=== PATIENT | male | born 1935 | race Caucasian/White ===

== ENCOUNTER 2019-09-29 12:15 | Inpatient (IN) ==
[2019-09-29 13:19] LABS: Basophils # 0.1 K/mcL (0.0-0.2); Basophils % 0.5 %; Eosinophils % 0.2 %; Hematocrit 37.3 % (37.5-50.1); Hemoglobin 12.3 g/dL (12.9-16.9); Immature Granulocytes % 0.8 % (0-4); Lymphocytes % 7.8 %; Mean Corpuscular Hemoglobin 28.3 pg (28.0-33.3); Mean Corpuscular Volume 85.9 fL (83.0-100.0); Mean Platelet Volume 9.4 fL (9.4-12.4); Monocytes # 1.7 K/mcL (0.0-1.3); Monocytes % 13.8 %; Neutrophils # 9.6 K/mcL (1.6-8.9); Platelet Count 301 K/mcL (140-400); Red Blood Count 4.34 M/mcL (4.19-5.50); Red Cell Distribution Width 14.6 % (11.5-14.5); Segmented Neutrophils % 76.9 %; White Blood Count 12.5 K/mcL (4.3-11.1)
[2019-09-29 13:25] LABS: INR 1.2; Prothrombin Time 13.2 Seconds (9.4-12.1)
[2019-09-29 13:28] LABS: Activated Partial Thrombo Time 33.2 Seconds (26.0-36.0)
[2019-09-29 13:39] LABS: Bilirubin,Urine Negative (Negative); Blood,Urine Negative (Negative); Clarity,Urine Clear (Clear); Color,Urine Yellow (Yellow); Glucose,Urine (UA) Normal (Normal); Ketones,Urine Negative (Negative); Leukocyte Esterase,Urine Negative (Negative); Nitrite,Urine Negative (Negative); PH,Urine 6.5 pH Units (5.0-8.0); Protein,Urine Negative (Neg-Trace); Specific Gravity,Urine 1.021 (1.010-1.025)
[2019-09-29 13:42] LABS: Alanine Aminotransferase 16 Units/L (7-52); Albumin 3.3 g/dL (3.5-5.7); Albumin/Globulin Ratio 1.5 (1.1-2.2); Alkaline Phosphatase 73 Units/L (34-104); Aspartate Amino Transferase 20 Units/L (13-39); BUN/Creatinine Ratio 37 (6-26); Bilirubin,Direct 0.3 mg/dL (0.0-0.2); Bilirubin,Indirect 0.9 mg/dL (0.0-1.0); Bilirubin,Total 1.2 mg/dL (0.3-1.0); Blood Urea Nitrogen 24 mg/dL (8-23); Calcium 9.6 mg/dL (8.6-10.3); Carbon Dioxide 26 mEq/L (23-29); Chloride 105 mEq/L (98-107); Creatine Kinase 133 Units/L (30-223); Globulin 2.2 g/dL (2.4-3.5); Glucose 106 mg/dL (70-105); Osmolality,Calculated 288 (280-300); Sodium 137 mEq/L (136-145); Total Protein 5.5 g/dL (6.4-8.9); Troponin I < 0.03 ng/mL (< 0.04); eGFR For African Americans > 60 (> 60); eGFR For Non-African Americans > 60 (> 60)
[2019-09-29 13:49] LABS: Amphetamine Screen,Urine Negative ng/mL (Cutoff=1000); Barbiturate Screen,Urine Negative ng/mL (Cutoff=200); Benzodiazepines Screen,Urine Negative ng/mL (Cutoff=200); Cannabinoid Screen,Urine Negative ng/mL (Cutoff = 50); Cocaine Screen,Urine Negative ng/mL (Cutoff= 300); Opiate Screen,Urine Negative ng/mL (Cutoff=300); Phencyclidine Screen,Urine Negative ng/mL (Cutoff=25)
[2019-09-29] MEDS ORDERED: Naloxone 0.4 MG/ML INJ IVP PRN (16:07)
[2019-09-29] MEDS ORDERED: 0.9 % Sodium Chloride 1,000 ML IVC SCH (16:15)
[2019-09-29] MEDS: CLEAR EYES NATURAL TEARS 15 ML BOTTLE LEFT EYE SCH ×2 (18:32→20:36)
[2019-09-30 04:21] LABS: Basophils # 0.1 K/mcL (0.0-0.2); Basophils % 0.7 %; Eosinophils # 0.1 K/mcL (0.0-0.6); Eosinophils % 1.3 %; Hematocrit 35.7 % (37.5-50.1); Hemoglobin 11.6 g/dL (12.9-16.9); Lymphocytes # 1.9 K/mcL (0.6-4.6); Lymphocytes % 17.2 %; Mean Corpuscular HGB Conc 32.5 g/dL (31.6-35.5); Mean Corpuscular Hemoglobin 27.8 pg (28.0-33.3); Mean Corpuscular Volume 85.6 fL (83.0-100.0); Monocytes # 1.8 K/mcL (0.0-1.3); Monocytes % 15.8 %; Neutrophils # 7.1 K/mcL (1.6-8.9); Platelet Count 304 K/mcL (140-400); Red Blood Count 4.17 M/mcL (4.19-5.50); Red Cell Distribution Width 14.6 % (11.5-14.5); White Blood Count 11.1 K/mcL (4.3-11.1)
[2019-09-30 04:45] LABS: Alanine Aminotransferase 13 Units/L (7-52); Albumin/Globulin Ratio 1.4 (1.1-2.2); Alkaline Phosphatase 70 Units/L (34-104); Aspartate Amino Transferase 15 Units/L (13-39); BUN/Creatinine Ratio 37 (6-26); Bilirubin,Direct 0.3 mg/dL (0.0-0.2); Bilirubin,Indirect 0.9 mg/dL (0.0-1.0); Bilirubin,Total 1.2 mg/dL (0.3-1.0); Blood Urea Nitrogen 23 mg/dL (8-23); Calcium 9.3 mg/dL (8.6-10.3); Carbon Dioxide 28 mEq/L (23-29); Chloride 106 mEq/L (98-107); Globulin 2.2 g/dL (2.4-3.5); Glucose 104 mg/dL (70-105); Osmolality,Calculated 296 (280-300); Potassium 3.8 mEq/L (3.5-5.1); Sodium 141 mEq/L (136-145); Total Protein 5.2 g/dL (6.4-8.9); eGFR For African Americans > 60 (> 60); eGFR For Non-African Americans > 60 (> 60)
[2019-09-30] MEDS: Finasteride 5 MG TABLET PO SCH (09:45)
[2019-09-30] MEDS: (Mirabegron [Myrbetriq] 50 MG) PO SCH (09:49)
[2019-09-30] MEDS: CLEAR EYES NATURAL TEARS 15 ML BOTTLE LEFT EYE SCH ×4 (10:09→21:16)
[2019-10-01 02:45] LABS: Hematocrit 35.2 % (37.5-50.1); Hemoglobin 11.2 g/dL (12.9-16.9); Mean Corpuscular HGB Conc 31.8 g/dL (31.6-35.5); Mean Corpuscular Hemoglobin 28.1 pg (28.0-33.3); Mean Corpuscular Volume 88.4 fL (83.0-100.0); Platelet Count 304 K/mcL (140-400); Red Blood Count 3.98 M/mcL (4.19-5.50); Red Cell Distribution Width 14.6 % (11.5-14.5); White Blood Count 11.3 K/mcL (4.3-11.1)
[2019-10-01] MEDS: Finasteride 5 MG TABLET PO SCH (09:36)
[2019-10-01] MEDS: (Mirabegron [Myrbetriq] 50 MG) PO SCH (09:37)
[2019-10-01] MEDS: CLEAR EYES NATURAL TEARS 15 ML BOTTLE LEFT EYE SCH ×4 (09:37→22:35)
[2019-10-02 06:07] LABS: Hematocrit 36.6 % (37.5-50.1); Hemoglobin 11.7 g/dL (12.9-16.9); Mean Corpuscular Hemoglobin 27.9 pg (28.0-33.3); Mean Corpuscular Volume 87.4 fL (83.0-100.0); Mean Platelet Volume 9.3 fL (9.4-12.4); Platelet Count 337 K/mcL (140-400); Red Blood Count 4.19 M/mcL (4.19-5.50); Red Cell Distribution Width 14.9 % (11.5-14.5); White Blood Count 11.5 K/mcL (4.3-11.1)
[2019-10-02] MEDS: Finasteride 5 MG TABLET PO SCH (08:11)
[2019-10-02] MEDS: (Mirabegron [Myrbetriq] 50 MG) PO SCH (08:15)
[2019-10-02] MEDS: CLEAR EYES NATURAL TEARS 15 ML BOTTLE LEFT EYE SCH ×4 (08:18→21:50)
[2019-10-02] MEDS: *HR* Heparin 5,000 UNIT/ML VIAL SQ SCH (16:57)
[2019-10-02] MEDS ORDERED: Acetaminophen 325 MG TABLET PO PRN (17:03)
[2019-10-03 04:52] LABS: Hematocrit 34.9 % (37.5-50.1); Hemoglobin 11.3 g/dL (12.9-16.9); Mean Corpuscular HGB Conc 32.4 g/dL (31.6-35.5); Mean Corpuscular Hemoglobin 28.3 pg (28.0-33.3); Mean Corpuscular Volume 87.3 fL (83.0-100.0); Mean Platelet Volume 9.5 fL (9.4-12.4); Platelet Count 321 K/mcL (140-400); Red Cell Distribution Width 14.7 % (11.5-14.5); White Blood Count 10.2 K/mcL (4.3-11.1)
[2019-10-03] MEDS: *HR* Heparin 5,000 UNIT/ML VIAL SQ SCH (05:15)
[2019-10-03 05:17] LABS: BUN/Creatinine Ratio 43 (6-26); Blood Urea Nitrogen 25 mg/dL (8-23); Calcium 9.2 mg/dL (8.6-10.3); Carbon Dioxide 24 mEq/L (23-29); Chloride 106 mEq/L (98-107); Glucose 96 mg/dL (70-105); Osmolality,Calculated 288 (280-300); Sodium 137 mEq/L (136-145); eGFR For African Americans > 60 (> 60); eGFR For Non-African Americans > 60 (> 60)
[2019-10-03 07:03] VITALS: BP 160/89
[2019-10-03] MEDS: CLEAR EYES NATURAL TEARS 15 ML BOTTLE LEFT EYE SCH (09:11)
[2019-10-03] MEDS: Finasteride 5 MG TABLET PO SCH (09:11)
[2019-10-03] MEDS: (Mirabegron [Myrbetriq] 50 MG) PO SCH (09:12)
== END 2019-10-03 12:17 | DRG 92 ==
LOC: 3BNU 12:15 → EMEROOARM 12:15 → 3BNU 15:14
PROVIDERS: ADMIT Pharmacist; ATTEND Pharmacist

== ENCOUNTER 2022-04-10 19:27 | Inpatient (IN) ==
[2022-04-10 20:38] LABS: Basophils # 0.1 K/mcL (0.0-0.2); Basophils % 0.4 %; Hematocrit 47.2 % (37.5-50.1); Hemoglobin 14.8 g/dL (12.9-16.9); Immature Granulocytes % 1.2 % (0-4); Lymphocytes # 0.4 K/mcL (0.6-4.6); Lymphocytes % 1.7 %; Mean Corpuscular HGB Conc 31.4 g/dL (31.6-35.5); Mean Corpuscular Hemoglobin 26.7 pg (28.0-33.3); Mean Corpuscular Volume 85.2 fL (83.0-100.0); Mean Platelet Volume 10.2 fL (9.4-12.4); Monocytes # 1.4 K/mcL (0.0-1.3); Monocytes % 6.8 %; Neutrophils # 18.7 K/mcL (1.6-8.9); Platelet Count 250 K/mcL (140-400); Red Blood Count 5.54 M/mcL (4.19-5.50); Red Cell Distribution Width 14.7 % (11.5-14.5); Segmented Neutrophils % 89.9 %; White Blood Count 20.8 K/mcL (4.3-11.1)
[2022-04-10 20:55] LABS: Potassium 3.8 mEq/L (3.5-5.1)
[2022-04-10 20:59] LABS: Troponin I 0.1 ng/mL (< 0.04)
[2022-04-10] MEDS ORDERED: Piperacillin/Tazobactam 3.375 GM in 0.9 % Sodium Chloride Mini Bag 100 ML IVPB ONE (21:06)
[2022-04-10] MEDS ORDERED: 0.9 % Sodium Chloride 500 ML IVC ONE (21:07)
[2022-04-10] MEDS: 0.9 % Sodium Chloride 1,000 ML IVC SCH (22:41)
[2022-04-10 23:38] LABS: Bacteria,Urine Few per hpf (None-Few); Bilirubin,Urine Negative (Negative); Blood,Urine Small (Negative); Budding Yeast,Urine Few per hpf (None Seen); Clarity,Urine Turbid (Clear); Color,Urine Dark-Yellow (Yellow); Glucose,Urine (UA) Normal (Normal); Hyaline Casts,Urine Few per lpf (None Seen); Ketones,Urine Trace mg/dL (Negative); Leukocyte Esterase,Urine Large (Negative); Mucus,Urine Few per lpf (None-Few); Nitrite,Urine Negative (Negative); PH,Urine 7.5 pH Units (5.0-8.0); Protein,Urine 200 mg/dL (Neg-Trace); RBC,Urine 30-50 per hpf (0-3); Specific Gravity,Urine 1.028 (1.010-1.025); Urobilinogen,Urine Normal (Normal); WBC,Urine TNTC per hpf (0-3)
[2022-04-11] MEDS ORDERED: Acetaminophen 325 MG TABLET PO PRN (01:34)
[2022-04-11] MEDS ORDERED: Naloxone 0.4 MG/ML INJ IVP PRN (01:34)
[2022-04-11] MEDS ORDERED: Ondansetron 4 MG/2 ML VIAL IVP PRN (01:34)
[2022-04-11] MEDS ORDERED: Aspirin Enteric Coated 325 MG Tablet PO ONE (01:36)
[2022-04-11] MEDS: 0.9 % Sodium Chloride 1,000 ML IVC SCH ×11 (02:55→19:33)
[2022-04-11] MEDS ORDERED: Vancomycin 1,500 MG/265 ML IV.SOLN IVPB SCH (03:00)
[2022-04-11] MEDS ORDERED: 0.9 % Sodium Chloride 1,000 ML IVC SCH (03:15)
[2022-04-11 04:46] LABS: Adenovirus Not Detected (Not Detect); Bordetella Pertussis Not Detected (Not Detect); Chlamydophila pneumoniae Not Detected (Not Detect); Coronavirus 229E Not Detected (Not Detect); Coronavirus HKU1 Not Detected (Not Detect); Coronavirus NL63 Not Detected (Not Detect); Coronavirus OC43 Not Detected (Not Detect); Human Metapneumovirus Not Detected (Not Detect); Human Rhinovirus/Enterovirus Not Detected (Not Detect); Influenza A Subtype 2009 H1 Not Detected (Not Detect); Influenza B Not Detected (Not Detect); Mycoplasma pneumoniae Not Detected (Not Detect); Parainfluenza Virus 1 Not Detected (Not Detect); Parainfluenza Virus 2 Not Detected (Not Detect); Parainfluenza Virus 3 Not Detected (Not Detect); Parainfluenza Virus 4 Not Detected (Not Detect); Respiratory Syncytial Virus Not Detected (Not Detect); SARS-CoV-2 Not Detected (Not Detect)
[2022-04-11 05:17] LABS: Basophils # 0.1 K/mcL (0.0-0.2); Basophils % 0.3 %; Eosinophils # 0.1 K/mcL (0.0-0.6); Eosinophils % 0.2 %; Hemoglobin 12.3 g/dL (12.9-16.9); Immature Granulocytes % 1.4 % (0-4); Lymphocytes # 0.8 K/mcL (0.6-4.6); Lymphocytes % 3.7 %; Mean Corpuscular HGB Conc 30.8 g/dL (31.6-35.5); Mean Corpuscular Volume 87.7 fL (83.0-100.0); Mean Platelet Volume 10.3 fL (9.4-12.4); Monocytes # 1.4 K/mcL (0.0-1.3); Platelet Count 222 K/mcL (140-400); Red Blood Count 4.56 M/mcL (4.19-5.50); Red Cell Distribution Width 14.9 % (11.5-14.5); Segmented Neutrophils % 87.4 %; White Blood Count 20.6 K/mcL (4.3-11.1)
[2022-04-11 05:25] LABS: INR 1.3; Prothrombin Time 14.5 Seconds (9.4-12.1)
[2022-04-11 05:38] LABS: Albumin 3.1 g/dL (3.5-5.7); Albumin/Globulin Ratio 1.3 (1.1-2.2); Bilirubin,Direct 0.3 mg/dL (0.0-0.2); Bilirubin,Indirect 0.5 mg/dL (0.0-1.0); Bilirubin,Total 0.8 mg/dL (0.3-1.0); Calcium 8.5 mg/dL (8.6-10.3); Globulin 2.4 g/dL (2.4-3.5); Magnesium 2.1 mg/dL (1.6-2.6); Potassium 4.2 mEq/L (3.5-5.1); Total Protein 5.5 g/dL (6.4-8.9)
[2022-04-11 05:50] LABS: Thyroid Stimulating Hormone 0.949 mcIU/mL (0.340-5.600)
[2022-04-11] MEDS: Piperacillin/Tazobactam 3.375 GM in 0.9 % Sodium Chloride Mini Bag 100 ML IVPB SCH ×3 (09:16→23:10)
[2022-04-11] MEDS: *HR* Enoxaparin 40 MG/0.4 ML SYRINGE SQ SCH (09:17)
[2022-04-12] MEDS ORDERED: Vancomycin 1,250 MG/262.5 ML IV.SOLN IVPB SCH (04:00)
[2022-04-12 09:11] LABS: Basophils # 0.1 K/mcL (0.0-0.2); Basophils % 0.6 %; Eosinophils # 0.2 K/mcL (0.0-0.6); Eosinophils % 1.6 %; Hematocrit 38.2 % (37.5-50.1); Hemoglobin 12.1 g/dL (12.9-16.9); Lymphocytes # 0.7 K/mcL (0.6-4.6); Lymphocytes % 6.8 %; Mean Corpuscular HGB Conc 31.7 g/dL (31.6-35.5); Mean Corpuscular Hemoglobin 27.3 pg (28.0-33.3); Mean Platelet Volume 10.4 fL (9.4-12.4); Monocytes # 1.1 K/mcL (0.0-1.3); Monocytes % 10.2 %; Neutrophils # 8.3 K/mcL (1.6-8.9); Platelet Count 203 K/mcL (140-400); Red Blood Count 4.44 M/mcL (4.19-5.50); Red Cell Distribution Width 14.7 % (11.5-14.5); Segmented Neutrophils % 79.8 %; White Blood Count 10.3 K/mcL (4.3-11.1)
[2022-04-12 09:13] LABS: Calcium 8.3 mg/dL (8.6-10.3); Phosphorous 2.3 mg/dL (2.7-4.5); Potassium 3.7 mEq/L (3.5-5.1)
[2022-04-12] MEDS: Aspirin 81 MG TAB.CHEW PO SCH (09:47)
[2022-04-12] MEDS: Piperacillin/Tazobactam 3.375 GM in 0.9 % Sodium Chloride Mini Bag 100 ML IVPB SCH ×3 (09:47→23:41)
[2022-04-12] MEDS: *HR* Enoxaparin 40 MG/0.4 ML SYRINGE SQ SCH (09:48)
[2022-04-12] MEDS ORDERED: Melatonin 3 MG TABLET PO PRN (12:10)
[2022-04-12] MEDS ORDERED: Ipratropium/Albuterol Neb 3 ML IH PRN (12:11)
[2022-04-12] MEDS: Gabapentin 300 MG CAPSULE PO SCH ×2 (15:32→20:23)
[2022-04-12] MEDS: Carbidopa/Levodopa 25/100 TABLET PO SCH ×3 (15:32→20:23)
[2022-04-12] MEDS ORDERED: Gabapentin 300 MG CAPSULE ONE (20:20)
[2022-04-12] MEDS ORDERED: Carbidopa/Levodopa 25/100 TABLET ONE (20:20)
[2022-04-13 05:59] LABS: Basophils % 0.5 %; Eosinophils # 0.2 K/mcL (0.0-0.6); Eosinophils % 2.3 %; Hematocrit 38.9 % (37.5-50.1); Hemoglobin 11.9 g/dL (12.9-16.9); Lymphocytes # 0.8 K/mcL (0.6-4.6); Lymphocytes % 10.7 %; Mean Corpuscular HGB Conc 30.6 g/dL (31.6-35.5); Mean Corpuscular Hemoglobin 26.6 pg (28.0-33.3); Mean Platelet Volume 10.7 fL (9.4-12.4); Monocytes # 1.2 K/mcL (0.0-1.3); Neutrophils # 5.5 K/mcL (1.6-8.9); Platelet Count 215 K/mcL (140-400); Red Blood Count 4.47 M/mcL (4.19-5.50); Red Cell Distribution Width 14.6 % (11.5-14.5); Segmented Neutrophils % 70.5 %; White Blood Count 7.8 K/mcL (4.3-11.1)
[2022-04-13 06:23] LABS: Calcium 8.5 mg/dL (8.6-10.3); Magnesium 2.2 mg/dL (1.6-2.6); Phosphorous 2.6 mg/dL (2.7-4.5); Potassium 3.5 mEq/L (3.5-5.1)
[2022-04-13] MEDS: Aspirin 81 MG TAB.CHEW PO SCH (08:18)
[2022-04-13] MEDS: Cholecalciferol (D-3) 1,000 UNIT (25MCG) TABLET PO SCH (08:19)
[2022-04-13] MEDS: Gabapentin 300 MG CAPSULE PO SCH ×3 (08:19→19:19)
[2022-04-13] MEDS: Carbidopa/Levodopa 25/100 TABLET PO SCH ×4 (08:19→19:19)
[2022-04-13] MEDS: Finasteride 5 MG TABLET PO SCH (08:19)
[2022-04-13] MEDS: *HR* Enoxaparin 40 MG/0.4 ML SYRINGE SQ SCH (08:19)
[2022-04-13] MEDS: Piperacillin/Tazobactam 3.375 GM in 0.9 % Sodium Chloride Mini Bag 100 ML IVPB SCH (08:19)
[2022-04-13] MEDS: BuPROPion XL (24 HR) 150 MG TABLET PO SCH (08:19)
[2022-04-13] MEDS ORDERED: QUEtiapine Fumarate 25 MG TABLET PO ONE (11:27)
[2022-04-14] MEDS: Gabapentin 300 MG CAPSULE PO SCH ×3 (09:37→20:01)
[2022-04-14] MEDS: Finasteride 5 MG TABLET PO SCH (09:37)
[2022-04-14] MEDS: BuPROPion XL (24 HR) 150 MG TABLET PO SCH (09:37)
[2022-04-14] MEDS: Cholecalciferol (D-3) 1,000 UNIT (25MCG) TABLET PO SCH (09:37)
[2022-04-14] MEDS: Carbidopa/Levodopa 25/100 TABLET PO SCH ×4 (09:37→20:01)
[2022-04-14] MEDS: *HR* Enoxaparin 40 MG/0.4 ML SYRINGE SQ SCH (09:37)
[2022-04-14] MEDS: Aspirin 81 MG TAB.CHEW PO SCH (09:37)
[2022-04-15] MEDS: Carbidopa/Levodopa 25/100 TABLET PO SCH (08:24)
[2022-04-15] MEDS: Gabapentin 300 MG CAPSULE PO SCH (08:24)
[2022-04-15] MEDS: Cholecalciferol (D-3) 1,000 UNIT (25MCG) TABLET PO SCH (08:24)
[2022-04-15] MEDS: Finasteride 5 MG TABLET PO SCH (08:24)
[2022-04-15] MEDS: BuPROPion XL (24 HR) 150 MG TABLET PO SCH (08:24)
[2022-04-15] MEDS: Aspirin 81 MG TAB.CHEW PO SCH (08:24)
[2022-04-15] MEDS: *HR* Enoxaparin 40 MG/0.4 ML SYRINGE SQ SCH (08:24)
[2022-04-15 09:26] LABS: Adenovirus Not Detected (Not Detect); Bordetella Pertussis Not Detected (Not Detect); Chlamydophila pneumoniae Not Detected (Not Detect); Coronavirus 229E Not Detected (Not Detect); Coronavirus HKU1 Not Detected (Not Detect); Coronavirus NL63 Not Detected (Not Detect); Coronavirus OC43 Not Detected (Not Detect); Human Metapneumovirus Not Detected (Not Detect); Human Rhinovirus/Enterovirus Not Detected (Not Detect); Influenza A Subtype 2009 H1 Not Detected (Not Detect); Influenza B Not Detected (Not Detect); Mycoplasma pneumoniae Not Detected (Not Detect); Parainfluenza Virus 1 Not Detected (Not Detect); Parainfluenza Virus 2 Not Detected (Not Detect); Parainfluenza Virus 3 Not Detected (Not Detect); Parainfluenza Virus 4 Not Detected (Not Detect); Respiratory Syncytial Virus Not Detected (Not Detect); SARS-CoV-2 Not Detected (Not Detect)
[2022-04-15 11:37] VITALS: BP 158/79; PULSE 55; TEMP 98.2; O2SAT 96
== END 2022-04-15 13:19 | DRG 871 ==
LOC: EMEROOARM 19:27 → 3ANU 04-11 14:02 → SUATTDRO 04-11 14:02 → 3ANU 04-11 15:35
PROVIDERS: ADMIT Internal Medicine; ATTEND Internal Medicine